=== PATIENT | male | born 1960 | race Caucasian/White ===

== ENCOUNTER 2020-10-28 20:28 | Emergency (ER) | payer OTHER ==
[~2020-10-28] VITALS: Ht 172.7 cm; Wt 74.8 kg
[~2020-10-28 20:28] MED LIST: DOXYCYCLINE 10100 MG PO; NORCO 5-325 TA1 EACH PO
[2020-10-28] MEDS ORDERED: CELEBREX100 MG/1 C PO (21:05)
[2020-10-28] MEDS ORDERED: NORCO 10-325 T1 EACH PO (21:05)
[2020-10-28 21:28] LABS: ABSOLUTE BASOPHILS 0.1 thou/uL (0.0-0.2); ABSOLUTE EOSINOPHILS 0.1 thou/uL (0.0-0.7); ABSOLUTE LYMPHOCYTES 1.6 thou/uL (0.8-5.3); ABSOLUTE MONOCYTES 1.4 thou/uL (0.0-1.2); ABSOLUTE NEUTROPHILS 11.5 thou/uL (1.6-8.1); BASOPHILS 0.5 %; EOSINOPHILS 0.8 %; HEMATOCRIT 44.4 % (42.0-52.0); HEMOGLOBIN 15.1 gm/dL (14.0-18.0); LYMPHOCYTES 10.8 %; MCH 33.4 pg (26.0-34.0); MCHC 34.1 g/dL (28.0-37.0); MCV 97.9 fL (80.0-100.0); MONOCYTES 9.6 %; MPV 7.9 fl. (7.2-11.1); NUCLEATED RBCS 0 /100WBC; PLATELET COUNT* 230 thou/uL (150-400); POLYS 78.3 %; RBC 4.54 mil/uL (4.50-6.00); RDW-CV 12.3 % (10.5-14.5); WBC 14.7 thou/uL (4.0-11.0)
[2020-10-28 21:37] LABS: CALCIUM 9.6 mg/dL (8.5-10.1); CREATININE 0.9 mg/dL (0.6-1.3); POTASSIUM 4.1 mmol/L (3.5-5.1)
[2020-10-28 21:42] LABS: TOTAL BILIRUBIN 0.9 mg/dL (<0.1-1.0); TOTAL PROTEIN 8.1 g/dL (6.4-8.2)
[2020-10-28] MEDS ORDERED: ZOFRAN ODT4 MG DISSOLVE ×2 (23:22→23:25)
[2020-10-28] MEDS ORDERED: HYDROCODON-ACE1 EAC7 PO ×2 (23:22→23:25)
[2020-10-28 23:35] VITALS: BP 155/89
--- NOTE | 2020-10-29 08:33 | EKG ---
[place] [address] ELECTROCARDIOGRAM REPORT Name: KAYLIE PURCELL Room: [facility]#: [id number] Admission: 10/28/20 Attend Phys: Discharge: 10/28/20 Date of : 60 Date of Service: 10/28/202146 Report #: [id number] THIS REPORT FOR: //name// [facility] ED Test Date: 2020-10-28 Test Time: 21:47:18 Pat Name: KAYLIE PURCELL Department: Room: Gender: B[employer] Worker: ALISIA : 1960 Requested By: Scooby Leigh Order Number: [id number] MD: Juan Venegas Measurements Intervals [place] Rate: 65 P: 71 GA: 136 QRS: 48 QRSD: 92 T: 47 QT: 389 QTc: 405 Interpretive Statements Sinus rhythm Borderline ST elevation, anterior leads No previous ECG available for comparison Electronically Signed On 10-29-2020 8:33:03 CDT by Juan Venegas [email or web address] <ELECTRONICALLY SIGNED> By: Juan Venegas MD, [facility] 10/29/20832 46 46 Juan Venegas MD, FACC /EPI
== END 2020-10-28 23:35 | disposition home or self-care (01) ==
LOC: M.ERS 20:28
PROVIDERS: Family Medicine
DX: R10.84 Generalized abdominal pain (principal); M19.90 Unspecified osteoarthritis, unspecified site; G62.9 Polyneuropathy, unspecified; G20 Parkinson's disease; F17.200 Nicotine dependence, unspecified, uncomplicated; Z88.0 Allergy status to penicillin